=== PATIENT | female | born 1935 | race Two or more races ===

== ENCOUNTER → 2016-09-26 | Outpatient (CLI) | payer MEDICARE, OTHER ==
[~2016-09-26] MED LIST: ADVIL200 MG PO; ALDACTONE25 MG PO; ALLOPURINOL300 MG PO; AREDS PO; ARTIFICIAL TEA1 EACH OPHTH; ASCORBIC ACID500 MG PO; ASPIR 8181 MG PO; COREG12.5 MG PO; COZAAR100 MG PO; FISH OIL 1,2001 EAC1 PO; FISH OIL 1,2001 EACH PO; FOLIC ACID1 MG PO; HUMALOG100 UNIT/3 SUB-Q; LANTUS100 UNIT/1 SUB-Q; METHOTREXATE2.5 MG PO; NITROSTAT0.4 MG SL; NORCO 5-325 MG1 TAB PO; NORVASC5 MG PO; NOVOLOG100 UNIT/M SUB-Q; PRESERVISION A1 EAC2 PO; PROAIR HFA8.5 GM INH; TEARGEN1 BOT OPHTH; TYLENOL EXTRA500 MG PO; TYLENOL PM EX-1 EACH PO; VESICARE5 MG PO; VITAMIN C1000 MG PO; ZOCOR20 MG PO
== END | disposition disaster alternative care site (69) ==
LOC: GRAD 14:08
DX: N20.9 Urinary calculus, unspecified (principal)

== ENCOUNTER → 2016-11-14 | Outpatient (CLI) | payer MEDICARE, OTHER | END | disposition disaster alternative care site (69) | LOC: GBCOE 09:44 | DX: Z12.31 Encounter for screening mammogram for malignant neoplasm of breast (principal) | CPT/HCPCS: G0202 ==